=== PATIENT | female | born 1995 | race Hispanic/Latino ===

== ENCOUNTER 2021-01-11 14:26 | Day surgery (SDC) | payer BC ==
[2021-01-11] MEDS ORDERED: hydrALAZINE 20 MG/ML VIAL SLOW IVP PRN (14:58)
[2021-01-11 16:36] VITALS: BMI 40.0
== END 2021-01-11 16:30 | disposition home health service (06) ==
LOC: CSHLD/OP 14:26
PROVIDERS: ATTEND Obstetrics & Gynecology
DX: O99.353 Diseases of the nervous system complicating pregnancy, third trimester (principal); G43.109 Migraine with aura, not intractable, without status migrainosus; O24.414 Gestational diabetes mellitus in pregnancy, insulin controlled; Z3A.36 36 weeks gestation of pregnancy; Z88.1 Allergy status to other antibiotic agents; Z79.899 Other long term (current) drug therapy
CPT/HCPCS: 36416; 99283

== ENCOUNTER 2021-01-23 07:09 | Inpatient (IN) | payer BC ==
[2021-01-23 07:15] VITALS: BMI 40.1
[2021-01-23] MEDS ORDERED: Penicillin G Potassium 5 MILL.UNITS in Sodium Chloride 0.9% 100 ML IVPB SCH (07:30)
[2021-01-23 07:34] LABS: Hemoglobin 11.8 g/dL (12.0-15.5); Mean Corpuscular HGB CONC 33.5 g/dL (32.0-36.0); Mean Corpuscular Hemoglobin 27.8 pg (27.0-33.0); Mean Corpuscular Volume 82.8 fl (81.6-98.3); Mean Platelet Volume 10.8 fl (7.4-10.4); Platelet Count 218 10x3/uL (150-450); RBC Distribution Width 15.8 % (11.5-14.5); Red Blood Cell (RBC) Count 4.25 10x6/uL (3.90-5.03); White Blood Cell (WBC) Count 8.4 10x3/uL (3.5-10.5)
[2021-01-23] MEDS ORDERED: NS w/ Oxytocin 30 units 500 ML ONE (07:58)
[2021-01-23 08:57] LABS: HIV (1/2) Antibody/Antigen Non-Reactive (NonReactive); HIV 1/2 INDEX 0.08 S/CO (<1.00); Hep B Surf Ag Non-Reactive S/CO (NonReactive)
[2021-01-23 08:58] LABS: Syphilis Antibody Nonreactive (Nonreactive); Syphilis Antibody Index 0.04 S/CO (<1.00 Non-Reactive)
[2021-01-23 09:16] LABS: HBSAg Index 0.08 S/CO (0-0.99)
[2021-01-23] MEDS ORDERED: Fentanyl 2 mcg/Bup 0.1% Cadd 100 ML ONE (09:22)
[2021-01-23] MEDS ORDERED: Naloxone HCl 0.4 mg/ml Vial IVP PRN ×2 (09:55)
[2021-01-23] MEDS ORDERED: ePHEDrine Sulfate 50 MG/10 ML VIAL SLOW IVP PRN (09:55)
[2021-01-23] MEDS ORDERED: Lactated Ringer's 500 ML IV PRN (09:55)
[2021-01-23] MEDS ORDERED: Acetaminophen 325 MG TAB PO PRN (09:55)
[2021-01-23] MEDS ORDERED: Hydrocerin (Eucerin) Cream 120 gm Jar TOP PRN (09:55)
[2021-01-23] MEDS ORDERED: Ondansetron PF 4 MG/2 ML Vial IVP PRN ×3 (09:55→20:28)
[2021-01-23] MEDS ORDERED: Promethazine HCl 25 MG/ML VIAL IM PRN ×3 (09:55→20:28)
[2021-01-23] MEDS ORDERED: diphenhydrAMINE 50 MG/ML VIAL IVP PRN (09:55)
[2021-01-23] MEDS ORDERED: Communication Order-Pharmacy FS SCH (10:00)
[2021-01-23] MEDS ORDERED: Fentanyl 2 mcg/Bupivacaine 0.1% Cassette 100 ML EPIDURAL SCH (10:00)
[2021-01-23] MEDS ORDERED: Carboprost 250 MCG/ML AMP ONE (11:37)
[2021-01-23] MEDS: Penicillin G 2.5 MILL.units 50 ML IVPB SCH ×2 (11:37→15:57)
[2021-01-23] MEDS ORDERED: hydrALAZINE 20 MG/ML VIAL SLOW IVP PRN ×2 (16:30→20:28)
[2021-01-23] MEDS ORDERED: NS w/ Oxytocin 30 units 500 ML IVPB SCH (16:30)
[2021-01-23] MEDS ORDERED: Lactated Ringer's 1,000 ML IV SCH (16:30)
[2021-01-23] MEDS ORDERED: Acetaminophen 500 MG TAB PO PRN (16:30)
[2021-01-23] MEDS ORDERED: Misoprostol 200 MCG TAB ONE (16:39)
[2021-01-23] MEDS ORDERED: Lanolin Ointment 7 GM TUBE TOP PRN (20:28)
[2021-01-23] MEDS ORDERED: Methylergonovine 0.2 MG/ML VIAL IM PRN (20:28)
[2021-01-23] MEDS ORDERED: Misoprostol 200 MCG TAB VAG PRN (20:28)
[2021-01-23] MEDS ORDERED: Milk Of Magnesia 30 ML UDCUP PO PRN (20:28)
[2021-01-23] MEDS ORDERED: HYDROcodone/Acetaminophen 5/325 mg Tablet PO PRN (20:28)
[2021-01-23] MEDS ORDERED: Acetaminophen/Codeine 30-300mg Tablet PO PRN (20:28)
[2021-01-23] MEDS ORDERED: Bisacodyl 10 MG SUPP PR PRN (20:28)
[2021-01-23] MEDS ORDERED: Boostrix 0.5 ML (Tdap) VIAL IM ONE (20:28)
[2021-01-23] MEDS ORDERED: Ondansetron ODT 4 MG TAB PO PRN (22:14)
[2021-01-23] MEDS: Ibuprofen 800 MG TAB PO SCH (22:29)
[2021-01-23] MEDS: Docusate Calcium (SURFAK) 240 MG CAP PO SCH (22:29)
[2021-01-24] MEDS: Ibuprofen 800 MG TAB PO SCH ×3 (05:07→23:41)
[2021-01-24 07:16] LABS: Hemoglobin 11.2 g/dL (12.0-15.5); Mean Corpuscular Hemoglobin 27.9 pg (27.0-33.0); Mean Corpuscular Volume 84.5 fl (81.6-98.3); Mean Platelet Volume 11.2 fl (7.4-10.4); Platelet Count 184 10x3/uL (150-450); RBC Distribution Width 15.9 % (11.5-14.5); Red Blood Cell (RBC) Count 4.01 10x6/uL (3.90-5.03); White Blood Cell (WBC) Count 9.9 10x3/uL (3.5-10.5)
[2021-01-24] MEDS: Ferrous Sulfate 325 MG TAB PO SCH ×2 (08:29→17:36)
[2021-01-24] MEDS: Prenatal Vitamin 1 TAB PO SCH (08:51)
[2021-01-24] MEDS: Docusate Calcium (SURFAK) 240 MG CAP PO SCH ×2 (08:51→23:41)
[2021-01-25] MEDS: Ibuprofen 800 MG TAB PO SCH ×2 (06:47→14:36)
[2021-01-25] MEDS: Ferrous Sulfate 325 MG TAB PO SCH (07:34)
[2021-01-25 07:53] VITALS: BP 120/83; TEMP 98.3
[2021-01-25] MEDS: Prenatal Vitamin 1 TAB PO SCH (08:23)
[2021-01-25] MEDS: Docusate Calcium (SURFAK) 240 MG CAP PO SCH (08:23)
== END 2021-01-25 17:30 | disposition home or self-care (01) | DRG 805 ==
LOC: CSHLD 07:09 → CSHPP 21:00
PROVIDERS: ADMIT Obstetrics & Gynecology; ATTEND Obstetrics & Gynecology
PROC: 10D07Z6 Extraction of Products of Conception, Vacuum, Via Natural or Artificial Opening (ICD-10-PCS; principal; 2021-01-23)
PROC: 0HQ9XZZ Repair Perineum Skin, External Approach (ICD-10-PCS; 2021-01-23)
PROC: 3E0234Z Introduction of Serum, Toxoid and Vaccine into Muscle, Percutaneous Approach (ICD-10-PCS; 2021-01-24)
PROC: 3E033VJ Introduction of Other Hormone into Peripheral Vein, Percutaneous Approach (ICD-10-PCS; 2021-01-24)
PROC: 10907ZC Drainage of Amniotic Fluid, Therapeutic from Products of Conception, Via Natural or Artificial Opening (ICD-10-PCS; 2021-01-24)
DX: O99.354 Diseases of the nervous system complicating childbirth (principal); G93.5 Compression of brain; Z37.0 Single live birth; Z3A.37 37 weeks gestation of pregnancy; O98.32 Other infections with a predominantly sexual mode of transmission complicating childbirth; O10.92 Unspecified pre-existing hypertension complicating childbirth; O24.12 Pre-existing type 2 diabetes mellitus, in childbirth; E11.9 Type 2 diabetes mellitus without complications; O99.214 Obesity complicating childbirth; O26.893 Other specified pregnancy related conditions, third trimester; O99.824 Streptococcus B carrier state complicating childbirth; A60.09 Herpesviral infection of other urogenital tract; O69.81X0 Labor and delivery complicated by cord around neck, without compression, not applicable or unspecified; O70.1 Second degree perineal laceration during delivery; Z79.4 Long term (current) use of insulin; Z67.41 Type O blood, Rh negative; Z79.899 Other long term (current) drug therapy
CPT/HCPCS: 36415; 51702; 85027; 85461; 86780; 86850; 86900; 86901; 87340; 87389; 88307; 90384; 96372; J2405; J2540; J2590; J3490; Q0162